=== PATIENT | female | born 1955 | race Caucasian/White ===

== ENCOUNTER 2016-11-04 07:15 | Day surgery (SDC) | payer OTHER ==
[~2016-11-04] VITALS: Ht 167.6 cm; Wt 81.6 kg
[~2016-11-04 07:15] MED LIST: ESTR1TAB24 PO
[2016-11-04 07:37] VITALS: BP 123/70; PULSE 60; RESP 14; O2SAT 98
[2016-11-04] MEDS ORDERED: fentaNYL-PF 50 mCg/mL 2 mL Inj ONE (07:47)
[2016-11-04] MEDS ORDERED: 0.9% Sodium Chloride 1,000 ML IV ONE (08:00)
[2016-11-04] MEDS ORDERED: 0.9% Sodium Chloride 1,000 ML IV PRN ×2 (08:05→08:09)
[2016-11-04] MEDS ORDERED: Sodium Chloride LOK Flush 10 mL Syringe IV PRN (08:05)
[2016-11-04] MEDS ORDERED: fentaNYL-PF 50 mCg/mL 2 mL Inj IVPUSH PRN ×2 (08:05→08:10)
[2016-11-04 08:33] VITALS: BP 115/69; PULSE 54; RESP 16; O2SAT 96
[2016-11-04 08:45] VITALS: BP 123/60; PULSE 58; RESP 14; O2SAT 98
--- NOTE | 2016-11-04 08:50 | ENDO ---
[address] [address] ENDOSCOPY PROCEDURE PATIENT: EDENILSON POOLE : 1955 MR#: [id number] ADMIT: 11/04/2016 JOB ID: [id number] PROCEDURE: Colonoscopy. INDICATIONS: A 61-year-old female with a family history of colon cancer in her brother. EQUIPMENT: PCF-H180-AL. SEDATION: 4 mg Versed and 100 mcg of fentanyl. COMPLICATIONS: None identified. BOWEL PREPARATION: Fair. Adequate exam. PROCEDURE INFORMATION: After the risks and benefits were explained, written and verbal informed consent was obtained. The patient was brought into the endoscopy suite and placed into the left lateral decubitus position. Sedation was achieved using the above-stated medications with the addition of oxygen via nasal cannula. A digital rectal examination was accomplished and, apart from some mild internal hemorrhoids, no other pathology was appreciated. The scope was introduced into the rectum and advanced under direct visualization to the level of the cecum, as identified by the appendiceal orifice and ileocecal valve. The scope was slowly withdrawn to carefully examine the mucosa for any defects or lesions. Retroflexed views were avoided in the rectum. Multiple direct views were made through the dentate line for exclusion of pathology. The colon was decompressed, the scope removed from the patient who tolerated the procedure well. FINDINGS: No significant polyps, mass lesions, or inflammatory features identified throughout. ENDOSCOPIC DIAGNOSES: 1. Internal hemorrhoids. 2. Otherwise visually unremarkable colonoscopy to cecum. RECOMMENDATIONS: Repeat colonoscopy in five years considering family history. CC: José Miguel Benavides MD
== END 2016-11-04 23:59 | disposition home or self-care (01) ==
LOC: END 07:15
PROVIDERS: ATTEND Internal Medicine Gastroenterology
DX: Z12.11 Encounter for screening for malignant neoplasm of colon (principal); Z80.0 Family history of malignant neoplasm of digestive organs; K64.8 Other hemorrhoids; Z79.890 Hormone replacement therapy
CPT/HCPCS: 99153; G0105; G0500; J2250; J3010; J7030